=== PATIENT | female | born 1955 | race Hispanic/Latino ===

== ENCOUNTER 2021-11-15 05:30 | Day surgery (SDC) | payer OTHER ==
[2021-11-14 12:07] LABS: BASOPHILS % (AUTO) 0.8 % (0.0-5.0); EOSINOPHILS % (AUTO) 2.5 % (0.0-8.0); HEMATOCRIT 37.1 % (36-48); MEAN CORPUSCULAR HGB CONC 34.5 g/dL (32.0-36.0); MEAN CORPUSCULAR VOLUME 84.1 fL (79-99); MONOCYTES % (AUTO) 6.2 % (3.0-13.0); NEUTROPHILS % (AUTO) 39.3 % (40.0-77.0); PLATELET COUNT (AUTO) 199 K/uL (130-400); RED BLOOD CELL COUNT(AUTO) 4.41 MIL/uL (4.00-5.50); RED CELL DISTRIBUTION WIDTH 12.1 % (11.0-15.5); WHITE BLOOD COUNT (AUTO) 4.7 K/uL (4.8-10.8)
[2021-11-14 12:15] LABS: CREATININE 0.6 mg/dL (0.5-1.5); POTASSIUM 3.7 mmol/L (3.5-5.1)
[2021-11-14 13:31] VITALS: BP 149/75
[2021-11-15] VITALS (17 sets, daily range): BP systolic 131–156; BP diastolic 65–92
[~2021-11-15] VITALS: Ht 152.4 cm; Wt 55.0 kg
[~2021-11-15 05:30] MED LIST: ASCO500T20 PO; ATOR10TA69 PO; CALCIUM PO; CEFAZOLIN SODIUM 2 GM VIAL IV SCH; ESCI-8 PO; OMEG100014 PO; OMEP40CA21 PO; OXYB5TAB15 PO; TRAZ-185 PO
[2021-11-15] MEDS ORDERED: LACTATED RINGERS 1000ML 1,000 ML IV ONE (05:41)
== END 2021-11-15 09:30 | disposition home or self-care (01) ==
LOC: DAH 05:30
PROVIDERS: ATTEND Obstetrics & Gynecology
DX: N39.3 Stress incontinence (female) (male) (principal); Z20.822 Contact with and (suspected) exposure to COVID-19; N90.89 Other specified noninflammatory disorders of vulva and perineum; K21.9 Gastro-esophageal reflux disease without esophagitis; F41.9 Anxiety disorder, unspecified; M06.9 Rheumatoid arthritis, unspecified; M81.0 Age-related osteoporosis without current pathological fracture; E78.5 Hyperlipidemia, unspecified; Z82.61 Family history of arthritis; Z79.01 Long term (current) use of anticoagulants; Z79.899 Other long term (current) drug therapy; Z86.73 Personal history of transient ischemic attack (TIA), and cerebral infarction without residual deficits
CPT/HCPCS: 36415; 56605; 57288; 80048; 82948 ×2; 85025; 86850; 86900; 86901; 87635; A4215; A4221; A4222; A4223; A4351; A4510; A4600; A4606; A4663; A6260; C1771; C9803; J7120; J0690